=== PATIENT | male | born 1960 | race Caucasian/White ===

== ENCOUNTER → 2017-01-15 | Outpatient (CLI) | payer BC ==
[~2017-01-15] MED LIST: COENZYME Q1050 M1 PO; COQ1050 MG PO; DEPO-TESTO200 MG/1 M IM; FISH OIL 1,001000 M1 PO; GINKGO BILOBA PO; GINKGO BILOBA120 M1 PO; GLUCOSA-CHOND-1 EACH PO; LOPRESSOR25 PO; METOPROLOL SUCC25 M1 PO; PYRIDIUM200 MG PO; VITAMIN D1000 UNI1 PO
== END ==
LOC: RAD 08:44
DX: C65.9 Malignant neoplasm of unspecified renal pelvis (principal)

== ENCOUNTER → 2019-12-13 | Outpatient (CLI) | payer BC | LOC: ULTRA 14:36 | DX: R20.0 Anesthesia of skin (principal) ==

== ENCOUNTER → 2019-12-24 | Outpatient (CLI) | payer BC | LOC: MRI 07:50 | PROVIDERS: ATTEND Nurse Practitioner | DX: M51.27 Other intervertebral disc displacement, lumbosacral region (principal); M48.07 Spinal stenosis, lumbosacral region; M54.18 Radiculopathy, sacral and sacrococcygeal region ==

== ENCOUNTER → 2020-01-19 | Outpatient (CLI) | payer BC | LOC: LAB 10:43 | PROVIDERS: ATTEND Family Medicine | DX: R51 Headache (principal); R50.9 Fever, unspecified; R53.1 Weakness; Z20.828 Contact with and (suspected) exposure to other viral communicable diseases ==